=== PATIENT | male | born 1955 | race Caucasian/White ===

== ENCOUNTER 2016-10-24 07:11 | Emergency (ER) | payer OTHER ==
[~2016-10-24] VITALS: Ht 172.7 cm; Wt 77.3 kg
[~2016-10-24 07:11] MED LIST: ALBU8.5H2 INHALATION; ASPI325T32 PO; LISI10TA PO; SIMV20TA4 PO
[2016-10-24 07:14] VITALS: BP 140/74; PULSE 90; RESP 20; O2SAT 96
--- NOTE | 2016-10-24 07:30 | ED.REPORT ---
HPI-General Illness Date of Service Oct 24, 2016 ED Provider: Regis Bland MD Pt is a 61 y/o male w/ a hx of TIA, cataract surgery, HTN, hyperlipidemia, presenting to the ED c/o now resolved bilateral blurred vision onset prior to arrival. He was seen recently for this and was told to return if his symptoms occurred again. He tested each eye individually by closing one eye at a time and noticed his blurred vision was equal bilaterally. His symptoms resolved after 30 minutes while he was driving to the ED. He describes his blurred vision as being underwater and not severe enough to cause him trouble driving. He denies any other symptoms, specifically numbness or weakness, facial droop, slurred speech, aphasia, any pain, SOB, cough, headache. He ran out of his Aspirin 1 wk ago and has not been taking it. He was admitted Aug 22-2015 for suspected TIA in the setting of right visual disturbance and expressive aphasia. At that time he had an MRI/MRA of the brain which was essentially unremarkable. He did not want to stay in the hospital for further workup including echocardiography. He was started on Aspirin and discharged with plan for follow-up with his PCP. Echocardiogram dated 09/28/16 was essentially unremarkable. Nursing Notes Stated Complaint: VISION BLURRY/POSS STROKE Chief Complaint: General Complaint Nursing Notes Reviewed: Yes Allergies: Coded Allergies: No Known Allergies (Verified , 10/24/16) Scheduled Albuterol HFA (Proair HFA) 8.5 Gm Hfa.aer.ad 2 PUFFS INHALATION Q4H Aspirin (Aspirin) 325 Mg Tablet 325 MG PO DAILY Lisinopril (Lisinopril) 10 Mg Tablet 10 MG PO DAILY Simvastatin (Simvastatin) 20 Mg Tablet 20 MG PO HS General Time Seen by MD: 07:27 Chief Complaint Other Hx Obtained From: Patient Arrived By: Walk-in Sudden in Onset?: Yes Onset Occurred: Just prior to arrival Symptom Duration: 16 - 30 minutes Severity: Current: No pain currently Severity: Maximum: No pain Recent Healthcare: Recent doctor visit, Recent testing, Previous diagnosis, Prior workup Similar Sx Previous: Yes Past Medical History Past Medical History Emphysema 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 Hx TIA Reports: Hyperlipidemia, Hypertension Past Surgical History Kidney stones R knee Cataract Smoking History Current Every Day Smoker Social History Denies smoking however smells strongly of cigarrettes, has cigarette stained hands and has a diagnosis of emphysema. Alcohol Use: Denies alcohol use Drug Use: Denies drug use Occupation Works on a ship Ambulatory Status Independent Review of Systems Full Review of Systems Constitutional: Denies: Chills, Fever Eyes: Reports: Blurred bilateral Respiratory: Denies: Non-productive cough, Shortness of breath Cardiovascular: Denies: Chest pain GI: Denies: Abdominal pain Neurologic: Reports: Vision change, Denies: Abnormal movement, Bladder dysfunction, Bowel dysfunction, Change LOC , Confusion, Dizziness, Focal weakness, Headache, Lightheaded, Numbness, Problem walking, Seizure, Shaking, Slurred speech, Spinning sensation, Syncope, Unable to speak, Weakness Complete sys rev & neg: except as marked. Physical Exam Vital Signs Vital Signs Date Time Temp Pulse Resp B/P Pulse Ox O2 Delivery O2 Flow Rate FiO2 10/24/16 09:01 74 19 132/62 97 Room Air 10/24/16 08:57 74 19 132/62 97 Room Air 10/24/16 08:09 74 15 138/80 96 Room Air 10/24/16 07:14 36.7 90 20 140/74 96 Room Air Initial VS: Reviewed, Vital signs normal ENT: Mucous membranes moist, Conjunctiva normal, No scleral icterus Neck: Supple, Full range of motion Cardiovascular: Regular rate & rhythm, Heart sounds normal, Intact distal pulses Abdomen / GI: Soft, Non-tender, No guarding, No rebound, No distention Extremities: Vascular intact, Neuro intact, No swelling, No tenderness Skin: Warm, Dry, No cyanosis Psychiatric: Mood/affect normal, Behavior normal, Normal thought content General/Constitutional: Awake, Alert, No acute distress, Well appearing, Cooperative, Not toxic appearing Head / Eyes: Atraumatic, Normocephalic, PERRL, EOMI, No nystagmus, No periorbital redness, No periorbital swelling, No photophobia, Conjunctiva NL Respiratory / Chest: Atraumatic, Breath sounds = bilat, No respiratory distress , No rales, No rhonchi, No wheezing, No retractions, No stridor, No chest tenderness, No chest wall deformity, No crepitus Decreased breath sounds bilat Neurologic: Oriented X3, Speech NL, No motor deficits, No sensory deficits, CN II - XII intact, Cerebellar NL, Memory NL, Gait NL Negative Romberg Interpretation & Diagnostics Lab Results Interpretation Result Diagram: 10/24/16 0800 10/24/16 0800 Test 10/24/16 08:00 White Blood Count 8.6th/mm3 (3.8-10.1) Red Blood Count 5.11mil/mm3 (4.40-5.80) Hemoglobin 15.3g/dL (13.8-17.2) Hematocrit 44.6% (41.0-50.0) Mean Corpuscular Volume 87.3fL (81-100) Mean Corpuscular Hemoglobin 29.9pg (27.0-35.0) Mean Corpuscular Hemoglobin Concent 34.3% (32.0-37.0) Red Cell Distribution Width 13.6% (12.3-15.4) Platelet Count 183bil/L (150-400) Neutrophils (%) (Auto) 70.9% (40-74) Lymphocytes (%) (Auto) 12.7% (14-46) Monocytes (%) (Auto) 10.9% (4-12) Eosinophils (%) (Auto) 4.8% (0-5) Basophils (%) (Auto) 0.5% (0-3) Sodium Level 140mEq/L (134-144) Potassium Level 4.2mEq/L (3.5-5.2) Chloride Level 100mEq/L (97-108) Carbon Dioxide Level 29mmol/L (18-29) Blood Urea Nitrogen 16mg/dL (8-27) Creatinine 0.96mg/dL (0.76-1.27) Estimat Glomerular Filtration Rate 85mL/min (>59) Glucose Level 109mg/dL (60-99) Calcium Level 9.3mg/dL (8.5-10.1) Total Bilirubin 0.8mg/dL (0.0-1.2) Aspartate Amino Transf (AST/SGOT) 26U/L (0-50) Alanine Aminotransferase (ALT/SGPT) 29U/L (0-44) Alkaline Phosphatase 103U/L (25-160) Total Protein 6.9g/dL (6.4-8.4) Albumin 4.2g/dL (3.4-5.0) Hold Wade Top Tube Received (Received) ECG Interpretation ECG Interpretation: Sinus rhythm rate 64 Inferior Q waves LAD Anterior Q waves Time: 08:20 Interpreted by: ED physician Normal ECG Interpretation: No acute ischemic changes, No change from prior ECGs (08/22/16) Re-Eval/Medical Decision Med Decision/Clinical Course In summary, the patient is a 61-year-old male with a history of "atypical migraine headaches" and possible previous TIA for which she recently received extensive workup including MRI/MRA of the head and neck as well as echocardiogram which was unremarkable. The patient presents to emergency department today complaining of a transient episode of blurred vision occurring in both eyes which subsequently resolved after. About 30 minutes. He had no associated slurred speech, sensory or motor changes. The nature of his visual changes are similar to previous events. There is no associated headache. Today comprehensive neurologic examination is completely normal. Of note he has no slurred speech, facial droop, word finding difficulties, motor deficits, sensory deficits, dysmetria. His gait is normal and his Romberg testing is negative. Here he was given 324 mg of aspirin as he states that he ran out about a week ago. The patient was discussed with his neurologist Dr. Ricci. We reviewed his previous workup and suspicion at this time is that his presentation is likely related to atypical migraine as opposed to actual TIA. It is felt the patient should resume his aspirin but that admission or further interventions are not indicated at this time given his normal neurologic examination. His presentation was not suggestive of a hemorrhagic stroke and we did not feel that neuroimaging was indicated. I considered acute ocular emergency such as retinal detachment however he reports that his visual symptoms completely resolved and his visual acuity here today is baseline. The visual symptoms occurred in both eyes simultaneously and resolved simultaneously. The superior highly atypical for retinal tear/detachment or other acute ocular emergency. The patient will follow-up with Dr. Ricci in the coming week. Follow-up and return precautions were reviewed in detail and the patient was discharged in good condition. Time of Eval: 08:48 Re-Evaluation/Progress Note: Pt rechecked. Informed pt of plan for treatment. Pt understands and agrees with plan for treatment. F/U and RTER warnings given. All questions addressed. Consultation : Referral / Consult Name: Todd Ricci MD Call Returned at: 08:47 Note: Believes his symptoms are similar to 2011. Thought at that type related to atypical migraine. Not related to stroke or TIA. Recommends aspirin but no other interventions at this time. Counseled Regarding: Diagnosis, Lab results, Need for follow-up, When/why to return to ED Discharge & Departure Primary Impression: Atypical migraine Additional Impressions: Blurred vision, bilateral History of TIA (transient ischemic attack) History of hyperlipidemia Noncompliance w/medication treatment due to intermit use of medication Disposition: Home Discharge Condition All VS Reviewed: Yes Condition: Stable Additional Instructions: Thank you for seeking care at emergency room. Symptoms that occurred earlier today were suggestive of possible TIA. He was diagnosed with TIA in the past and the recommendation is that you take an adult aspirin daily. We recommended that you resume taking adult aspirin every day. You should follow-up with your primary doctor in the next week. You have been referred to neurology for further follow-up as well. You should return to the ED immediately if you develop recurrent symptoms, headache, numbness, tingling, weakness, vision changes, fevers, vomiting, cough , shortness of breath, chest pain, lightheadedness, weakness or any other concerning signs or symptoms. Thank you for letting us partake in your care today. Referrals: Todd Gonsalez DO (PCP) Todd Ricci MD Scribe Attestation Portions of this note were transcribed by Pasquale Eli. I, Dr. Bland personally performed the history, physical exam and medical decision-making; I reviewed and confirmed the accuracy of the information in the transcribed note. Signed by Pasquale Eli - Dianne - 10/24/16 - [id number] copies to: Todd Gonsalez DO; Todd Ricci MD, Beck O MD Oct 24, 2016 07:30 PASQUALE ELI Oct 24, 2016 07:38
[2016-10-24 08:09] VITALS: BP 138/80; PULSE 74; RESP 15; O2SAT 96
[2016-10-24 08:12] LABS: BASOPHILS % (AUTO) 0.5 % (0-3); EOSINOPHILS % (AUTO) 4.8 % (0-5); MONOCYTES % (AUTO) 10.9 % (4-12); Mean Corpuscular Hemoglobin 29.9 pg (27.0-35.0); Mean Corpuscular Volume 87.3 fL (81-100); NEUTROPHILS % (AUTO) 70.9 % (40-74); Platelet Count 183 bil/L (150-400)
[2016-10-24 08:57] VITALS: BP 132/62; PULSE 74; RESP 19; O2SAT 97
[2016-10-24 09:01] VITALS: BP 132/62; PULSE 74; RESP 19; O2SAT 97
== END 2016-10-24 09:11 | disposition home or self-care (01) ==
LOC: SED 07:11
DX: G43.909 Migraine, unspecified, not intractable, without status migrainosus (principal); H53.8 Other visual disturbances; I10 Essential (primary) hypertension; F17.200 Nicotine dependence, unspecified, uncomplicated; Z79.82 Long term (current) use of aspirin; Z86.73 Personal history of transient ischemic attack (TIA), and cerebral infarction without residual deficits; Z86.39 Personal history of other endocrine, nutritional and metabolic disease; Z91.14 Patient's other noncompliance with medication regimen